=== PATIENT | male | born 1980 | race Two or more races ===

== ENCOUNTER 2018-09-08 13:26 | Emergency (ER) | payer OTHER ==
[~2018-09-08] VITALS: Ht 170.2 cm; Wt 68.0 kg
[2018-09-08 13:32] VITALS: BP 144/79
[2018-09-08] MEDS ORDERED: SULFAMETH/TRIMETH 800/160 MG 1 UDTAB TABLET PO ONE (14:30)
[2018-09-08] MEDS ORDERED: CEPHALEXIN MONOHYDRATE 500 MG CAPSULE PO ONE ×2 (14:30→14:35)
[2018-09-08] MEDS ORDERED: SULFAMETH/TRIMETH 800/160 MG 1 UDTAB TABLET ONE (14:35)
== END 2018-09-08 14:51 ==
LOC: ER 13:43
DX: L08.9 Local infection of the skin and subcutaneous tissue, unspecified (principal); E11.9 Type 2 diabetes mellitus without complications